=== PATIENT | female | born 1995 | race African-American/Black ===

== ENCOUNTER 2019-02-25 16:03 | Observation (INO) | payer OTHER ==
[~2019-02-25] VITALS: Ht 165.1 cm; Wt 59.9 kg
== END 2019-02-25 19:00 | disposition home or self-care (01) ==
LOC: 8EST 16:03 → 8 EST LDRP 16:45
PROVIDERS: ADMIT Obstetrics & Gynecology; ATTEND Obstetrics & Gynecology
DX: Z04.1 Encounter for examination and observation following transport accident (principal); Z3A.35 35 weeks gestation of pregnancy; V49.9XXA Car occupant (driver) (passenger) injured in unspecified traffic accident, initial encounter; Y92.410 Unspecified street and highway as the place of occurrence of the external cause
CPT/HCPCS: 76805; 76818; 99281; G0378